=== PATIENT | female | born 1960 | race Caucasian/White ===

== ENCOUNTER 2017-01-24 07:16 | Day surgery (SDC) | payer BC ==
[2017-01-24] MEDS ORDERED: CHOL100018 PO (08:02)
[2017-01-24] MEDS ORDERED: ASPI-650 PO (08:02)
[2017-01-24] MEDS ORDERED: LEVO100T PO (08:02)
[2017-01-24] MEDS ORDERED: LIDOCAINE 2%, 20ML ONE (08:12)
== END 2017-01-24 09:25 | disposition home or self-care (01) ==
LOC: CACL 07:16
PROVIDERS: ATTEND Internal Medicine Cardiovascular Disease
DX: H34.02 Transient retinal artery occlusion, left eye (principal); P72.1 Transitory neonatal hyperthyroidism; R55 Syncope and collapse; Z88.6 Allergy status to analgesic agent; Z88.5 Allergy status to narcotic agent; Z88.8 Allergy status to other drugs, medicaments and biological substances; Z86.73 Personal history of transient ischemic attack (TIA), and cerebral infarction without residual deficits; Z79.82 Long term (current) use of aspirin; Z79.899 Other long term (current) drug therapy
CPT/HCPCS: 33282; C1764; J3490

== ENCOUNTER → 2018-12-11 | Outpatient (CLI) | payer BC ==
[~2018-12-11] MED LIST: ASPI-650 PO; CHOL100012 PO; LEVO100T PO
== END | disposition home or self-care (01) ==
LOC: CVU 10:00
PROVIDERS: ATTEND Internal Medicine Cardiovascular Disease
DX: I65.23 Occlusion and stenosis of bilateral carotid arteries (principal)
CPT/HCPCS: 93880

== ENCOUNTER 2019-01-31 16:07 | Emergency (ER) | payer BC ==
[~2019-01-31] VITALS: Ht 175.3 cm; Wt 56.2 kg
[2019-01-31] MEDS ORDERED: SODIUM CHLORIDE FLUSH 10ML SYR IVF ONE (16:30)
[2019-01-31] MEDS ORDERED: ASPIRIN 81 MG TABLET CHEW PO ONE (16:30)
[2019-01-31] MEDS ORDERED: ASPIRIN 325 MG TABLET ONE (16:31)
--- NOTE | 2019-01-31 16:39 | NUR ---
PT TO ROOM 17 W/ C/O HAVING LOOP RECORDER AND NOTED TO NORMALL BE BRADYCARDIC BUT OVER THE LAST FEW DAYS PT STATES SHE HAS INCREASED TO 160'S. PT ALSO HAS C/O NEAR SYNCOPE HARD TILE SETTER. PT RESTING ON [facility]. NADN. MONITORS APPLIED. ERP DR. MAYFIELD AT BEDSIDE.
[2019-01-31 16:42] LABS: BASOPHILS # (AUTO) 0.02 x10^3/uL (0-0.1); BASOPHILS % (AUTO) 0 % (0-1); EOSINOPHILS # (AUTO) 0.11 x10^3/uL (0-0.4); EOSINOPHILS % (AUTO) 2 % (1-7); LYMPHOCYTES # (AUTO) 1.38 x10^3/uL (1-3.4); LYMPHOCYTES % (AUTO) 24 % (22-44); MD NO; MEAN CORPUSCULAR HGB CONC 32.9 g/dL (32.4-35.8); MEAN CORPUSCULAR VOLUME 97.3 fL (80-100); MONOCYTES # (AUTO) 0.37 x10^3/uL (0.2-0.8); MONOCYTES % (AUTO) 6 % (2-9); NEUTROPHILS # (AUTO) 3.94 x10^3/uL (1.8-6.8); NEUTROPHILS % (AUTO) 68 % (42-75); PLATELET COUNT 176 x10^3/uL (130-400); RED BLOOD COUNT 4.46 x10^6/uL (3.82-5.3)
[2019-01-31 16:52] LABS: ALANINE AMINOTRANSFERASE 20 U/L (12-78); ALBUMIN 4.1 g/dL (3.4-5.0); ANION GAP 5 mmol/L (5-15); CALCIUM 8.8 mg/dL (8.5-10.1); CHLORIDE 109 mmol/L (98-107)
[2019-01-31 16:57] LABS: ALKALINE PHOSPHATASE 55 U/L (45-117); BILIRUBIN,TOTAL 0.2 mg/dL (0.2-1.0); CREATININE 0.89 mg/dL (0.55-1.02); TOTAL PROTEIN 7.5 g/dL (6.4-8.2); TROPONIN I < 0.015 ng/mL (0.000-0.045)
--- NOTE | 2019-01-31 17:23 | NUR ---
PT RESTING ON GURNEY. NADN. VERDE. CHART REVIEWED AND PLACED FOR RECHECK.
[2019-01-31 18:15] VITALS: BP 114/72
--- NOTE | 2019-01-31 18:15 | NUR ---
PT RESTING ON GURNEY. NICHOLS VSS. ERP DR. MAYFIELD AT BEDSIDE.
[2019-04-09] MEDS ORDERED: LEVO100T PO (10:56)
[2019-04-11] MEDS ORDERED: CHOL2000 PO (10:25)
[2019-04-11] MEDS ORDERED: ASPI-650 PO (10:25)
[2019-04-12] MEDS ORDERED: TRAM50TA2 PO (09:50)
== END 2019-01-31 18:31 | disposition home or self-care (01) ==
LOC: ED 18:25
DX: R00.1 Bradycardia, unspecified (principal); R42 Dizziness and giddiness
CPT/HCPCS: 36415; 71045; 80053; 83735; 84484; 85025; 93005; 99284